=== PATIENT | female | born 1990 | race American Indian/Alaskan Native ===

== ENCOUNTER 2017-11-09 08:59 | Emergency (ER) | payer SELFPAY ==
[2017-11-09 09:13] VITALS: BP 123/67
--- NOTE | 2017-11-09 11:35 | Emergency Department Report ---
Chief Complaint: Sore Throat Stated Complaint: SORE THROAT Time Seen by Provider: 11/09/17 11:31 - HPI History of Present Illness: 27-year-old female comes in complaining of sore throat for 2 weeks. Patient states that she feels her seasonal allergies are flaring up. Patient reports that she has brain does HE ears sneezing itching nose and nasal congestion and intermittent cough. She reports she is taking TheraFlu and [place] Claritin-D Sudafed and Aleve. But not all at the same time. Patient denies any fever limits chilled denies any nausea vomiting diarrhea. She denies any headache or change in vision or facial pressure. Patient reports that she works in a warehouse around a lot of paper and unsure if the papers make her throat sore and her allergies flared up. She reports she is taking no current medications on a daily basis has no known drug allergies and no past medical history. - Exam Vital Signs: Vital Signs 11/09/17 09:11 Temperature 98.8 F Pulse Rate 62 Respiratory 18 Rate Blood Pressure 123/67 O2 Sat by Pulse 99 Oximetry Physical Exam: GENERAL APPEARANCE: Well developed, well nourished, in no acute distress. SKIN: Inspection of the skin reveals no rashes, ulcerations or petechiae. HEENT: The sclerae were anicteric and conjunctivae were pink and moist. Extraocular movements were intact and pupils were equal, round, and reactive to light with normal accommodation. External inspection of the ears and nose showed no scars, lesions, or masses. Lips, teeth, and gums showed normal mucosa. The oral mucosa, hard and soft palate, tongue and posterior pharynx were normal. NECK: Supple and symmetric. There was no thyroid enlargement, and no tenderness , or masses were felt. CHEST: Normal AP diameter and normal contour without any kyphoscoliosis. LUNGS: Auscultation of the lungs revealed normal breath sounds without any other adventitious sounds or rubs. CARDIOVASCULAR: There was a regular rate and rhythm without any murmurs, gallops , rubs. The carotid pulses were normal and 2+ bilaterally without bruits. Peripheral pulses were 2+ and symmetric. MSE screening note: Focused history and physical exam performed. Due to findings the following was ordered: Discussed patient that she can follow up with [facility] Claritin or Zyrtec's [facility]. ED Disposition for MSE Condition: Stable Referrals: CLAIRE BLANC MD [Primary Care Provider] - 3-5 Days
== END 2017-11-09 12:30 | disposition left against medical advice (07) ==
LOC: ED 08:59
DX: J02.9 Acute pharyngitis, unspecified (principal); Z53.21 Procedure and treatment not carried out due to patient leaving prior to being seen by health care provider